=== PATIENT | female | born 1985 | race Two or more races ===

== ENCOUNTER 2025-04-10 16:21 | Emergency (ER) | payer OTHER ==
[~2025-04-10] VITALS: Ht 157.5 cm; Wt 72.6 kg
[2025-04-10] MEDS ORDERED: KETOROLAC TROMETHAMINE 15 MG VIAL IM STA (18:26)
[2025-04-10] MEDS ORDERED: ORPHENADRINE CITRATE 30 MG/ML AMPUL IM STA (18:26)
[2025-04-10] MEDS ORDERED: ORPHENADRINE CITRATE 30 MG/ML AMPUL ONE (18:36)
[2025-04-10] MEDS ORDERED: KETOROLAC TROMETHAMINE 30 MG VIAL ONE (18:36)
[2025-04-10 19:33] LABS: BASO % 0.7 % (0.1-1.2); EOS % 2.7 % (0.7-7.0); HEMATOCRIT 30.5 % (34.1-44.9); LYMPH # 2.33 (1.18-3.74); LYMPH % 31.3 % (19.3-53.1); MEAN CORPUSCULAR HEMOGLOBIN 18.5 pg (25.6-32.2); MONO # 0.42 (0.24-0.82); MONO % 5.6 % (4.7-12.5); NEUT # 4.39 (1.56-6.13); PLATELET COUNT 240 K/uL (163-369); RED BLOOD COUNT 4.86 M/uL (3.93-5.22); RED CELL DISTRIBUTION WIDTH 16.7 % (11.6-14.4)
[2025-04-10 19:45] LABS: ALBUMIN 3.6 gm/dL (3.4-5.0); BILIRUBIN TOTAL 0.19 mg/dL (0.3-1.2); CALCIUM 8.5 mg/dL (8.5-10.1); CREATININE SERUM 0.5 mg/dL (0.55-1.02); GFR 137.35; TOTAL PROTEIN 7.6 gm/dL (6.4-8.2)
[2025-04-10 21:01] LABS: INFLUENZA A AG NEGATIVE (NEGATIVE)
[2025-04-10 21:02] LABS: COVID-19 AG NEGATIVE (NEGATIVE)
[2025-04-10] MEDS ORDERED: NORFLEX100MG PO (21:23)
== END 2025-04-10 22:09 | disposition home or self-care (01) ==
LOC: ER 16:49
PROVIDERS: General Practice
DX: M79.604 Pain in right leg (principal); Z20.822 Contact with and (suspected) exposure to COVID-19

== ENCOUNTER 2025-07-05 10:13 | Outpatient (CLI) | payer OTHER ==
[~2025-07-05 10:13] MED LIST: NORFLEX100MG PO
== END 2025-07-05 10:17 | disposition home or self-care (01) ==
LOC: SONOGRAMA 10:13
PROVIDERS: ATTEND Internal Medicine Hematology & Oncology
DX: E04.2 Nontoxic multinodular goiter (principal); K59.00 Constipation, unspecified; K91.1 Postgastric surgery syndromes; K91.2 Postsurgical malabsorption, not elsewhere classified; Z98.84 Bariatric surgery status; D50.8 Other iron deficiency anemias; D75.839 Thrombocytosis, unspecified

== ENCOUNTER 2025-07-26 13:09 | Emergency (ER) | payer OTHER ==
[~2025-07-26] VITALS: Ht 157.5 cm; Wt 74.4 kg
[2025-07-26] MEDS ORDERED: IRON236 MG (13:41)
[2025-07-26 13:43] VITALS: BP 125/74; O2SAT 98
[2025-07-26 15:29] LABS: BASO % 0.9 % (0.1-1.2); EOS # 0.12 (0.04-0.54); EOS % 1.5 % (0.7-7.0); LYMPH # 1.63 (1.18-3.74); LYMPH % 20.3 % (19.3-53.1); MONO # 0.44 (0.24-0.82); MONO % 5.5 % (4.7-12.5); NEUT # 5.75 (1.56-6.13); NEUT % 71.6 % (34.0-71.1); RED CELL DISTRIBUTION WIDTH 17.5 % (11.6-14.4)
[2025-07-26 15:53] LABS: ALT/SGPT 20.0 U/L (12-78); AST/SGOT 26.0 U/L (15-37); BILIRUBIN TOTAL 0.25 mg/dL (0.3-1.2); BUN CREA RATIO 12.0 (7.0-25.0); CREATININE SERUM 0.58 mg/dL (0.55-1.02); GFR 115.73; GLOBULINA 3.8 G/DL (2.4-3.5); GLUCOSE FASTING 123.0 mg/dL (65-100); OSMOLALITY SERUM 282.0 MOSM/KG (275-295)
== END 2025-07-26 17:58 | disposition home or self-care (01) ==
LOC: ER 13:09
PROVIDERS: Preventive Medicine Public Health & General Preventive Medicine
DX: D64.9 Anemia, unspecified (principal); N83.201 Unspecified ovarian cyst, right side

== ENCOUNTER 2025-07-31 18:02 | Inpatient (IN) | payer OTHER ==
[~2025-07-31] VITALS: Ht 157.5 cm; Wt 73.5 kg
[~2025-07-31 18:02] MED LIST changes: +IRON236 MG
--- NOTE | 2025-07-31 19:25 | NUR ---
SE RECIBE PTE ALERTA Y ORIENTADA LA CUAL REFIERE VENIR POR ANEMIA Y REFERIDO DE PJ. AVA BETTENCOURT. SE MIDEN S/V A PTE Y SE UBICA.
[2025-07-31] MEDS ORDERED: FAMOTIDINE/PF 20 MG in 0.9 % SODIUM CHLORIDE 8 ML IV PUSH SCH (20:22)
--- NOTE | 2025-07-31 20:24 | NUR ---
SE ORIENTA A PACIENTE SOBRE ORDENES MEDICAS, REFIERE ENTENDER. SE COLECTAN MUESTRAS DE LABORATORIO BAJO MEDIDAS ASEPTICAS. SE NOTIFICA X-RAY. SE ENTREGA ENVASE PARA U/A.
[2025-07-31] MEDS ORDERED: 0.9 % SODIUM CHLORIDE 1,000 ML IV SCH ×2 (20:30)
[2025-07-31] MEDS ORDERED: ONDANSETRON HCL 4 MG in 0.9 % SODIUM CHLORIDE 50 ML IV PRN (20:30)
[2025-07-31] MEDS ORDERED: ACETAMINOPHEN 500 MG GEL..CAP PO PRN (20:30)
[2025-07-31] MEDS ORDERED: FAMOTIDINE/PF 20 MG/2 ML VIAL ONE (20:51)
[2025-07-31 21:15] LABS: BASO % 0.7 % (0.1-1.2); EOS # 0.13 (0.04-0.54); EOS % 1.9 % (0.7-7.0); LYMPH # 1.95 (1.18-3.74); LYMPH % 27.8 % (19.3-53.1); MEAN PLATELET VOLUME 11.10 fl (9.4-12.4); MONO # 0.45 (0.24-0.82); MONO % 6.4 % (4.7-12.5); NEUT # 4.43 (1.56-6.13); NEUT % 63.1 % (34.0-71.1); RED CELL DISTRIBUTION WIDTH 18.0 % (11.6-14.4)
[2025-07-31 21:43] LABS: ALT/SGPT 20.0 U/L (12-78); AST/SGOT 21.0 U/L (15-37); BILIRUBIN TOTAL 0.18 mg/dL (0.3-1.2); BUN CREA RATIO 15.0 (7.0-25.0); CREATININE SERUM 0.67 mg/dL (0.55-1.02); GFR 97.99; GLOBULINA 3.6 G/DL (2.4-3.5); GLUCOSE FASTING 165.0 mg/dL (65-100); OSMOLALITY SERUM 288.0 MOSM/KG (275-295)
[2025-07-31 21:45] LABS: INR 1.03
[2025-07-31 22:13] LABS: URINE APPEARANCE Clear; URINE BILIRRUBIN Negative (NEGATIVE); URINE BLOOD Small; URINE COLOR Yellow; URINE KETONE Negative (NEGATIVE); URINE LEUKOCYTE Negative; URINE NITRATE Negative; URINE PROTEIN Negative (NEGATIVE); URINE UROBILINOGEN 0.2 E.U./dl
[2025-07-31 22:17] LABS: URINE BACTERIA 148.7 uL (0.0-1933); URINE EPITHELIAL CELLS 14.4 uL (0.0-38.8); URINE RBC 11.8 uL (0.0-20.8); URINE WBC 7.8 uL (0.0-23.2)
[2025-07-31 22:20] LABS: URINE CAST 0.00 uL (0.0-1.40); URINE GLUCOSE 500 MG/DL (NEGATIVE)
[2025-08-01 02:19] VITALS: BP 99/63; O2SAT 99
[2025-08-01] MEDS ORDERED: DIPHENHYDRAMINE HCL 50 MG/ML VIAL 1ML IV SCH (05:30)
[2025-08-01] MEDS ORDERED: METHYLPREDNISOLONE SOD SUCC 40 MG VIAL IV SCH (05:30)
[2025-08-01 08:55] VITALS: BP 102/63
[2025-08-01] MEDS ORDERED: IRON FUM,PS/FOLIC/BCOMP,C NO.9 1 CAP CAPSULE PO SCH (09:00)
[2025-08-01] MEDS ORDERED: INSULIN LISPRO 1,000 UNIT/10 ML UNITS SUBCUTANEO PRN (11:30)
[2025-08-01] MEDS ORDERED: DEXTROSE 50 % IN WATER 0.5 G/ML VIAL IV PRN (11:30)
[2025-08-01 16:08] VITALS: BP 115/71; O2SAT 96
[2025-08-01] MEDS ORDERED: Cyanocobalamin/Mecobalamin 1 TAB.SL SL SCH (17:00)
[2025-08-01] MEDS ORDERED: SOD FERRIC GLUC COMPLX/SUCROSE 62.5 MG/5 ML AMPUL IV SCH (17:00)
[2025-08-01 18:57] LABS: BASO % 0.1 % (0.1-1.2); EOS # 0.00 (0.04-0.54); EOS % 0.0 % (0.7-7.0); LYMPH # 0.55 (1.18-3.74); LYMPH % 5.6 % (19.3-53.1); MEAN PLATELET VOLUME 10.70 fl (9.4-12.4); MONO # 0.14 (0.24-0.82); MONO % 1.4 % (4.7-12.5); NEUT # 9.06 (1.56-6.13); NEUT % 92.6 % (34.0-71.1)
[2025-08-01 19:05] LABS: RED CELL DISTRIBUTION WIDTH 22.6 % (11.6-14.4)
[2025-08-02 02:03] VITALS: BP 100/65; O2SAT 99
[2025-08-02 06:54] LABS: ALT/SGPT 17.0 U/L (12-78); AST/SGOT 19.0 U/L (15-37); BILIRUBIN TOTAL 0.39 mg/dL (0.3-1.2); BUN CREA RATIO 16.0 (7.0-25.0); CREATININE SERUM 0.63 mg/dL (0.55-1.02); GFR 105.2; GLOBULINA 3.2 G/DL (2.4-3.5); GLUCOSE FASTING 89.0 mg/dL (65-100); OSMOLALITY SERUM 285.0 MOSM/KG (275-295)
[2025-08-02 09:38] VITALS: BP 101/65; O2SAT 98
[2025-08-02 12:12] LABS: URINE APPEARANCE Clear; URINE BILIRRUBIN Negative (NEGATIVE); URINE BLOOD Negative; URINE COLOR Dark Yellow; URINE GLUCOSE Negative (NEGATIVE); URINE KETONE Trace (NEGATIVE); URINE LEUKOCYTE Negative; URINE NITRATE Negative; URINE PROTEIN Negative (NEGATIVE); URINE UROBILINOGEN 1.0 E.U./dl
[2025-08-02 12:16] LABS: URINE BACTERIA 589.1 uL (0.0-1933); URINE EPITHELIAL CELLS 42.2 uL (0.0-38.8); URINE RBC 28.7 uL (0.0-20.8); URINE WBC 9.5 uL (0.0-23.2)
[2025-08-02 12:52] LABS: URINE CAST 0.14 uL (0.0-1.40)
[2025-08-02 16:44] VITALS: BP 110/69
== END 2025-08-02 20:34 | disposition home or self-care (01) | DRG 812 ==
LOC: ER 18:02 → MEDI 20:39
PROVIDERS: Internal Medicine Hematology & Oncology; ADMIT Internal Medicine; ATTEND Internal Medicine
PROC: 30233N1 Transfusion of Nonautologous Red Blood Cells into Peripheral Vein, Percutaneous Approach (ICD-10-PCS; principal; 2025-08-01)
DX: D50.8 Other iron deficiency anemias (principal); Z98.84 Bariatric surgery status; E11.9 Type 2 diabetes mellitus without complications; Z79.4 Long term (current) use of insulin; E53.8 Deficiency of other specified B group vitamins